=== PATIENT | male | born 1955 | race Caucasian/White ===

== ENCOUNTER 2017-01-17 15:51 | Emergency (ER) | payer BC ==
[~2017-01-17] VITALS: Ht 180.3 cm; Wt 115.9 kg
--- NOTE | 2017-01-17 16:36 | PHYS DOC ---
Past History Past Medical History: No Pertinent History Past Surgical History: Tonsillectomy, Other Alcohol Use: Occasionally Drug Use: None Adult General Chief Complaint Chief Complaint: KNEE INJURY HPI HPI Patient is a 61-year-old male who complains of right knee pain and swelling. The patient missed the bottom step this morning at about 5 AM and landed hard and twisted his knee. He felt a pop. He's had pain during the day today. The pain is actually more up into his anterior thigh. His knee has been swollen. He has been icing it and taking aspirin. He has not had a previous problem with this knee. However, in the past week or 2, he has had a couple of other minor injuries of this knee. He twisted it one time and he missed a step and fell on it another time. Neither of those seemed like they were any kind of serious injury. Review of Systems Review of Systems Constitutional: Denies fever or chills [] Musculoskeletal: Denies pain or swelling of other joints Allergies Allergies Allergies Coded Allergies Type Severity Reaction Last Updated Verified No Known Drug Allergies 01/17/17 No Physical Exam Physical Exam Constitutional: Well developed, well nourished, no acute distress, non-toxic appearance. Walking with a cane and a limp, alert, mentating normally. HENT: Normocephalic, atraumatic, bilateral external ears normal, nose normal. [ ] Eyes: conjunctiva normal, no discharge. [] Neck: Normal range of motion, no stridor. [] Skin: Warm, dry, no erythema, no rash. [] Extremities: No tenderness, no cyanosis, no clubbing, ROM intact, no edema. Right leg: Tenderness to palpation of the anterior thigh without swelling or visible abnormality. The patient is able to actively extend at the knee. Quadriceps patellar tendon intact. There is mild tenderness of the anterior medial knee. There is mild swelling of the knee. There is no definite effusion. No bony tenderness. Neurologic: Alert and oriented X 3, normal motor function, no focal deficits noted. [] Current Patient Data Vital Signs Vital Signs Date Time Temp Pulse Resp B/P (MAP) Pulse Ox O2 Delivery O2 Flow Rate FiO2 01/17/17 16:06 98.2 82 20 97 EKG EKG [] Radiology/Procedures Radiology/Procedures 3 views of the right knee read by me. No acute bony abnormality noted.[] Course & Med Decision Making Course & Med Decision Making Pertinent Labs and Imaging studies reviewed. (See chart for details) 61-year-old male who twisted his right knee but his pain and tenderness is mostly in his anterior thigh. We talked about rest, ice, elevation, nonsteroidal 's for a few days, if not improving he needs to follow-up for recheck. He is agreeable to that plan. [] Dragon Disclaimer Dragon Disclaimer This chart was dictated in whole or in part using Voice Recognition software in a busy, high-work load, and often noisy Emergency Department environment. It may contain unintended and wholly unrecognized errors or omissions. Departure Departure: Impression: Primary Impression: Strain of right knee and leg Disposition: HOME, SELF-CARE Condition: STABLE Patient Instructions: Knee Pain, [id number] Additional Instructions: Today, x-rays are negative for any bone injury. As we discussed, soft tissue including cartilage and ligaments does not show up on x-rays, if your pain continues after 2 or 3 days, he'll need to follow-up with your primary care doctor for recheck. Ice 15-20 minutes out of every 1-2 hours. Stay off of it, baby it, elevate for a day or 2. Anti-inflammatory pain relievers. INOCENTE VILLANUEVA MD Jan 17, 2017 16:36
[2017-01-17 16:42] VITALS: BP 159/89
--- NOTE | 2017-01-18 10:04 | RAD ---
Three-view right knee radiographs 01/17/2017 Clinical history: Right knee pain post fall this morning. AP, lateral and oblique digital radiographs of the right knee were obtained. No fracture or dislocation right knee is seen. Mild to moderate degenerative changes are seen involving all 3 compartments of the right knee. There is a small right suprapatellar joint effusion. Impression: No fracture or dislocation of the right knee is seen.
== END 2017-01-17 16:41 | disposition home or self-care (01) ==
LOC: ER 15:51
DX: S86.811A Strain of other muscle(s) and tendon(s) at lower leg level, right leg, initial encounter (principal); Y93.89 Activity, other specified; W10.9XXA Fall (on) (from) unspecified stairs and steps, initial encounter; Y99.8 Other external cause status; Y92.89 Other specified places as the place of occurrence of the external cause
CPT/HCPCS: 73562; 99284

== ENCOUNTER 2017-04-05 14:33 | Emergency (ER) | payer BC ==
[2017-04-05 14:40] VITALS: BP 193/107
--- NOTE | 2017-04-05 15:49 | PHYS DOC ---
Past History Past Medical History: GERD, Hypertension, Other Past Surgical History: Other Alcohol Use: Occasionally Drug Use: None Adult General Chief Complaint Chief Complaint: HYPERTENSION HPI HPI Patient is a 61 year old M who presents with hypertension. He was diagnosed with hypertension 3 days ago and started on amlodipine. He denies having symptoms today. He denies headache blurry vision chest pain and any other associated symptoms. He has no other exacerbating or alleviating factors. Review of Systems Review of Systems Constitutional: Denies fever or chills [] Eyes: Denies change in visual acuity, redness, or eye pain [] HENT: Denies nasal congestion or sore throat [] Respiratory: Denies cough or shortness of breath [] Cardiovascular: No additional information not addressed in HPI [] GI: Denies abdominal pain, nausea, vomiting, bloody stools or diarrhea [] : Denies dysuria or hematuria [] Musculoskeletal: Denies back pain or joint pain [] Integument: Denies rash or skin lesions [] Neurologic: Denies headache, focal weakness or sensory changes [] Endocrine: Denies polyuria or polydipsia [] All other systems were reviewed and found to be within normal limits, except as documented in this note. Family History Family History No pertinent family medical history was reported Current Medications Current Medications Medications were reviewed Allergies Allergies Allergies Coded Allergies Type Severity Reaction Last Updated Verified No Known Drug Allergies 01/17/17 No Physical Exam Physical Exam Constitutional: Well developed, well nourished, no acute distress, non-toxic appearance. [] HENT: Normocephalic, atraumatic, Eyes: EOMI, conjunctiva normal, no discharge. [] Neck: Normal range of motion, no tenderness, supple, no stridor. [] Cardiovascular:Heart rate regular rhythm, Lungs & Thorax: Bilateral breath sounds clear to auscultation [] Abdomen: Bowel sounds normal, soft, no tenderness, no masses, no pulsatile masses. [] Skin: Warm, dry, no erythema, no rash. [] Neurologic: Alert and oriented X 3, normal motor function, normal sensory function, no focal deficits noted. [] Psychologic: Affect normal, judgement normal, mood normal. [] Current Patient Data Vital Signs Vital Signs Date Time Temp Pulse Resp B/P (MAP) Pulse Ox O2 Delivery O2 Flow Rate FiO2 04/05/17 14:40 98.0 91 18 96 Room Air EKG EKG [] Radiology/Procedures Radiology/Procedures [] Course & Med Decision Making Course & Med Decision Making Pertinent Labs and Imaging studies reviewed. (See chart for details) His blood pressure did improve without treatment. Dragon Disclaimer Dragon Disclaimer This electronic medical record was generated, in whole or in part, using a voice recognition dictation system. Departure Departure: Impression: Primary Impression: Hypertension Disposition: HOME, SELF-CARE Condition: STABLE Referrals: CONCEPCION ENGEL MD (PCP) Patient Instructions: Hypertension Additional Instructions: Cory Benitez was seen in the emergency department for high blood pressure. No emergency medical condition was found on history or physical exam. His blood pressure returned to normal without intervention. He was advised follow-up with his primary care doctor in the next 1-2 days for further management. Problem Qualifiers Primary Impression: Hypertension Hypertension type: essential hypertension Qualified Codes: I10 - Essential ( primary) hypertension AYLIN CLEMENT MD Apr 05, 2017 15:49
== END 2017-04-05 16:10 | disposition home or self-care (01) ==
LOC: ER 14:33
DX: I10 Essential (primary) hypertension (principal); K21.9 Gastro-esophageal reflux disease without esophagitis
CPT/HCPCS: 99281